=== PATIENT | male | born 1985 | race Caucasian/White ===

== ENCOUNTER 2018-02-21 18:18 | Emergency (ER) | payer BC ==
[~2018-02-21] VITALS: Ht 165.1 cm; Wt 74.8 kg
[2018-02-21] MEDS ORDERED: IBUPROFEN 800800 M1 PO (18:44)
[2018-02-21] MEDS ORDERED: ZANAFLEX4 MG PO (18:44)
[2018-02-21] MEDS ORDERED: MEDROLDOSEPACK PO (18:44)
[2018-02-21 19:43] VITALS: BP 147/101
== END 2018-02-21 19:44 | disposition home or self-care (01) ==
LOC: M.ERS 18:18
DX: M54.30 Sciatica, unspecified side (principal); G89.29 Other chronic pain; M25.552 Pain in left hip; M25.551 Pain in right hip; F17.210 Nicotine dependence, cigarettes, uncomplicated